=== PATIENT | male | born 1965 | race Two or more races ===

== ENCOUNTER 2021-05-08 00:10 | Emergency (ER) | payer OTHER ==
[~2021-05-08] VITALS: Ht 167.6 cm; Wt 74.8 kg
[2021-05-08 00:16] VITALS: BP 171/91
--- NOTE | 2021-05-08 00:40 | NUR ---
Patient discharged to home in stable condition. Written and verbal after care instructions given. Patient verbalizes understanding of instruction.
== END 2021-05-08 00:40 | disposition home or self-care (01) ==
LOC: ER 00:12
DX: Z02.89 Encounter for other administrative examinations (principal)